=== PATIENT | male | born 2000 | race Caucasian/White ===

== ENCOUNTER → 2018-11-16 | Outpatient (CLI) | payer OTHER ==
[~2018-11-16] MED LIST: FLEXERIL PO; FLONASE 0.05%50 MCG; NORCO 5-325 TA1 EACH PO; PRILOSEC 20 MG20 MG PO; PROAIR HFA8.5 GM IH; SYMBICORT80 MCG/4.1 INH; ZOFRAN4 MG PO; ZYRTEC10 M5
== END ==
LOC: ULTRA 10:32
DX: R10.11 Right upper quadrant pain (principal)

== ENCOUNTER → 2018-11-23 | Outpatient (CLI) | payer OTHER | LOC: NUC 07:42 | DX: R10.11 Right upper quadrant pain (principal) ==

== ENCOUNTER 2020-07-17 18:00 | Emergency (ER) | payer OTHER ==
[~2020-07-17] VITALS: Ht 177.8 cm; Wt 72.6 kg
[2020-07-17 19:42] LABS: ABSOLUTE NEUTROPHILS 9.1 thou/uL (1.4-8.2); BASOPHILS 0.3 % (0.0-2.0); EOSINOPHILS 1.7 % (0.0-3.0); HEMATOCRIT 43.7 % (42.0-52.0); HEMOGLOBIN 14.9 gm/dL (14.0-18.0); LYMPHOCYTES 11.1 % (24.0-44.0); MCH 28.5 pg (26.0-34.0); MCHC 34.1 g/dL (28.0-37.0); MCV 83.5 fL (80.0-100.0); MONOCYTES 6.1 % (1.0-8.0); PLATELET COUNT 285 thou/uL (150-400); POLYS 80.8 % (36.0-66.0); RBC 5.23 mil/uL (4.50-6.00); RDW 13.4 % (10.5-14.5); WBC 11.3 thou/uL (4.0-11.0)
[2020-07-17 19:51] LABS: CALCIUM 9.8 mg/dL (8.5-10.1); CREATININE 0.9 mg/dL (0.7-1.3)
[2020-07-17 19:57] LABS: ALBUMIN 4.5 g/dL (3.4-5.0); TOTAL BILIRUBIN 0.7 mg/dL (0.2-1.0); TOTAL PROTEIN 7.3 g/dL (6.4-8.2)
[2020-07-17 20:36] LABS: URINE BILIRUBIN NEGATIVE (Negative); URINE BLOOD NEGATIVE (Negative); URINE CLARITY CLEAR; URINE COLOR YELLOW; URINE GLUCOSE-RANDOM* NEGATIVE (Negative); URINE KETONES NEGATIVE (Negative); URINE LEUKOCYTES-REFLEX NEGATIVE (Negative); URINE NITRITE-REFLEX NEGATIVE (Negative); URINE PROTEIN (DIPSTICK) NEGATIVE (Negative); URINE SPECIFIC GRAVITY 1.015 (1.005-1.035); URINE UROBILINOGEN 0.2 E.U./dl (0.2-1.0)
[2020-07-17] MEDS ORDERED: LEVSIN0.125 MG PO (20:54)
[2020-07-17] MEDS ORDERED: NORCO 5-325 TA1 EAC2 PO (20:54)
[2020-07-17] MEDS ORDERED: ONDANSETRON HCL4 M2 PO (20:54)
[2020-07-17 21:49] VITALS: BP 138/65
== END 2020-07-17 21:59 | disposition home or self-care (01) ==
LOC: ER 18:00
PROVIDERS: Physician Assistant
DX: K52.9 Noninfective gastroenteritis and colitis, unspecified (principal); J45.909 Unspecified asthma, uncomplicated; Z90.89 Acquired absence of other organs; Z20.828 Contact with and (suspected) exposure to other viral communicable diseases

== ENCOUNTER 2021-03-23 00:24 | Emergency (ER) | payer OTHER ==
[~2021-03-23] VITALS: Ht 177.8 cm; Wt 72.6 kg
[~2021-03-23 00:24] MED LIST changes: +LEVSIN0.125 MG PO; +NORCO 5-325 TA1 EAC2 PO; +ONDANSETRON HCL4 M2 PO
[2021-03-23 01:27] LABS: CALCIUM 9.5 mg/dL (8.5-10.1); CREATININE 1.1 mg/dL (0.7-1.3); POTASSIUM 3.8 mmol/L (3.5-5.1)
[2021-03-23 01:33] LABS: ALBUMIN 4.5 g/dL (3.4-5.0); TOTAL BILIRUBIN 0.7 mg/dL (0.2-1.0); TOTAL PROTEIN 7.7 g/dL (6.4-8.2)
[2021-03-23 02:42] VITALS: BP 125/72
== END 2021-03-23 02:47 | disposition home or self-care (01) ==
LOC: ER 00:24
PROVIDERS: Emergency Medicine
DX: J06.9 Acute upper respiratory infection, unspecified (principal); Z20.822 Contact with and (suspected) exposure to COVID-19; J45.909 Unspecified asthma, uncomplicated; Z90.89 Acquired absence of other organs